=== PATIENT | female | born 1945 | race Caucasian/White ===

== ENCOUNTER → 2023-10-16 07:50 | Outpatient (REF) | payer MEDICARE, OTHER, SELFPAY | LOC: DHCBC/DCA 07:50 | PROVIDERS: ATTENDING PHYSICIAN Nuclear Medicine Nuclear Cardiology; FAMILY PHYSICIAN Family Medicine | DX: I10 Essential (primary) hypertension (principal); R00.0 Tachycardia, unspecified; Z82.49 Family history of ischemic heart disease and other diseases of the circulatory system; E11.9 Type 2 diabetes mellitus without complications; I25.10 Atherosclerotic heart disease of native coronary artery without angina pectoris | CPT/HCPCS: 78452; 93017; A9500 ==

== ENCOUNTER → 2023-11-04 09:12 | Outpatient (REF) | payer MEDICARE, OTHER, SELFPAY | LOC: HWRCS 09:12 | PROVIDERS: ATTENDING PHYSICIAN Nuclear Medicine Nuclear Cardiology; FAMILY PHYSICIAN Family Medicine | DX: I10 Essential (primary) hypertension (principal); R00.0 Tachycardia, unspecified; Z82.49 Family history of ischemic heart disease and other diseases of the circulatory system; E11.9 Type 2 diabetes mellitus without complications; I25.10 Atherosclerotic heart disease of native coronary artery without angina pectoris | CPT/HCPCS: 93306 ==

== ENCOUNTER 2024-11-28 12:05 | Emergency (ER) | payer MEDICARE, OTHER, SELFPAY ==
[2024-11-28 12:11] VITALS: BP 193/98
[2024-11-28 12:31] LABS: Hematocrit 33.8 % (37.0-47.0); Hemoglobin 11.3 g/dL (12.0-16.0); Mean Corp Hgb Conc. 33.4 g/dL (33.0-37.0); Mean Corpuscular Volume 83.5 fL (81.0-99.0); Nucleated Red Blood Cells % 0 %; Platelet Count 474 10^3/uL (130-400); Red Cell Dist. Width 13.4 % (11.5-14.5)
[2024-11-28 12:57] LABS: Urine Character Cloudy (Clear)
[2024-11-28 13:31] LABS: Urine Squamous Cell >30 /LPF (Few); Urine White Cell 50-60 /HPF (0-5)
[2024-11-28 14:08] VITALS: BMI 30.6
[2024-11-28 14:20] VITALS: BP 167/72
--- NOTE | 2024-11-28 14:23 | EDRN ---
Dr. García in room w/ pt at this time.
[2024-11-28 14:47] LABS: ALT (SGPT) 16 U/L (0-35); AST (SGOT) 20 U/L (14-36); Albumin 4.7 g/dl (3.5-5.0); Alkaline Phosphatase 53 U/L (38-126); Blood Urea Nitrogen 18 mg/dl (7-17); Calcium 10.6 mg/dl (8.4-10.2); Carbon Dioxide 23 mmol/L (22-30); Chloride 100 mmol/L (98-107); Estimated Creatinine Clearance 62 ml/min; Glucose 104 mg/dl (70-99); Potassium 4.1 mmol/L (3.5-5.1); Sodium 131 mmol/L (135-145); Total Protein 7.2 g/dl (6.3-8.2); eGFR > 60.00
[2024-11-28 15:00] VITALS: BP 159/74
--- NOTE | 2024-11-28 15:01 | EDRN ---
Pt asking to be straight cathed as she self caths at home.
--- NOTE | 2024-11-28 15:14 | EDRN ---
Pt self catheterizes at home. Pt states she has not voided. Bladder scanned for 2 mL.
--- NOTE | 2024-11-28 15:16 | EDRN ---
Pt's HR increased to 140-150, repeat EKG done and pt in A Flutter.
[2024-11-28] MEDS: CARDIZEM 10 MG IV (15:25)
[2024-11-28 15:26] VITALS: BP 176/75
--- NOTE | 2024-11-28 15:44 | ED.GENMED ---
History of Present Illness
General
Chief Complaint: Abnormal Lab Value
Source: patient
Exam Limitations: none
Time Seen by Provider: 11/28/24 14:02
History of Present Illness
History of Present Illness:
78-year-old female presents mostly with jitteriness. She was concerned about a low sodium. She felt dizzy overnight. Her blood sugar was low but her monitor was questionably accurate. She took 3 large glasses of orange juice. This morning she
felt lightheaded and took 3 large power drinks. Currently she feels fine. She says she has had intermittent episodes of heart racing in the past that she felt was due to her nerves. Currently denying chest pain shortness of breath heart racing
syncope or any other acute complaints
Past History
Past History
ED Past Medical History: HTN, Hypercholesterolemia and NIDDM
ED Past Surgical History: Other (Total thyroidectomy)
Social History
Tobacco: Non-smoker
Alcohol: None
Drug: None
Personal:
Living: with family
Family History
Family History: Other (Uncontributory)
Review of Systems
Review of Systems
All Other Systems: Not applicable
Constitutional: Denies fever
Cardiac: Denies chest pain or syncope
Phy Exam
Physical Exam
Physical Exam:
GENERAL: Alert and oriented in no apparent distress
EYE: Orbits normal.
NECK: Supple, no thyroid palpable
ENT: Pharynx without erythema
CARDIAC: Mildly tachycardic and regular no murmur
LUNGS: Clear breath sounds,normal
ABDOMEN: Soft, without focal tenderness or distention
NEUROLOGICAL: Alert and oriented , grossly non-focal
SKIN: Warm and dry, no rash or lesion, no discoloration, skin intact.
MUSCULOSKELETAL: No edema,no deformity.Good color
PSYCH: Normal and appropriate interaction.
Course
Orders/Labs/Results
Orders:
Orders
11/28/24 12:08
Electrocardiogram (*1) Urgent
Reason for Study: Abdominal Pain
EKG- Treatment ONCE
11/28/24 12:22
Complete Blood Count/With Diff Urgent
Urinalysis Reflex To Culture Urgent
Date Specimen was Collected: 11/28/24
Time Specimen was Collected: 12:08
Urine Microscopic Reflex Cult Urgent
Urine Osmolality Random [Osmolality, Random Urine] Urgent
Date Specimen was Collected: 11/28/24
Time Specimen was Collected: 12:08
Urine Culture Urgent
VIANNEY Source: U
Specimen Description:
Date Specimen was Collected: 11/28/24
Time Specimen was Collected: 12:08
11/28/24 14:16
Comprehensive Metabolic Panel Urgent
TSH Reflex To Free T4 Urgent
11/28/24 15:03
EKG [Electrocardiogram (*1)] Urgent
Reason for Study: Other
Other Reason for Exam: svt
EKG- Treatment ONCE
Aspirin Chewable [Low Strength Aspirin] 81 mg TUBE NOW STA
11/28/24 15:13
Add On- LAB Urgent
Tests Added?: tsh reflex t4
11/28/24 15:20
Metoprolol [Lopressor] 5 mg IV NOW STA
11/28/24 15:22
Diltiazem HCl [Cardizem] 10 mg IV NOW STA
11/28/24 16:10
Diltiazem Extended Release [Cardizem Cd] 120 mg PO NOW STA
11/28/24 17:05
Apixaban [Eliquis] 5 mg PO NOW STA
Abnormal Lab Results
11/28/24 11/28/24
12:22 14:16
RBC 4.05 L 10^6/uL
(4.20-5.40)
Hgb 11.3 L g/dL
(12.0-16.0)
Hct 33.8 L %
(37.0-47.0)
Plt Count 474 H 10^3/uL
(130-400)
Absolute Neuts (auto) 8.0 H 10^3/uL
(1.4-6.5)
Absolute Monos (auto) 0.7 H 10^3/uL
(0.1-0.6)
Lymphocytes % 17.0 L %
(20.5-51.1)
Sodium 131 L mmol/L
(135-145)
BUN 18 H mg/dl
(7-17)
Glucose 104 H mg/dl
(70-99)
Calcium 10.6 H mg/dl
(8.4-10.2)
Ur Occult Blood Reflex 1+ A
(Negative)
Urine Nitrite (Reflex) Positive A
(Negative)
Leukocyte Esterase Rfl 3+ A
(Negative)
Urine RBC 3-6 A /HPF
(0-2)
Urine WBC (Reflex) 50-60 A /HPF
(0-5)
Urine Bacteria (Reflex) Many A
(Negative)
Urine Albumin (Reflex) 2+ A
(Neg - Trace)
11/28/24 12:22
11/28/24 14:16
Vital Signs
Initial and Last Documented VS:
Initial Vital Signs
Temp Pulse Resp BP Pulse Ox
98.4 F 116 16 193/98 98
11/28/24 12:11 11/28/24 12:11 11/28/24 12:11 11/28/24 12:11 11/28/24 12:11
Last Documented Vital Signs
Temp Pulse Resp BP Pulse Ox
98.4 F 97 17 164/63 98
11/28/24 12:11 11/28/24 17:30 11/28/24 17:30 11/28/24 17:00 11/28/24 17:15
MDM/Problems Addressed
Differential Diagnosis Includes:
Patient medically stable and nontoxic. Sodium reasonable at 131. No acute findings on exam except patient did go into a tachycardic regular regular at 152 that appeared to be atrial flutter. She does not necessarily feel this. She reversed in
and out of this throughout her ER stay. Discussed with cardiology. Will add rate control with Cardizem. Add Eliquis. No contraindication anticoagulation. Urine is positive but she self catheterizes has no fever chills or other infectious
complaints.
*Pulse Oximetry
SaO2: 98
Oxygen Mode of Delivery: Room air
Patient hypoxic: no
*EKG
Interpreted by ED Provider?: Yes
Interpretation: abnormal
Comparison EKG: changes noted
Heart Rate: 114
Rate: tachycardiac
Rhythm: sinus
[place]: normal axis
Interval: normal interval
QRS Pattern: normal QRS
Ischemia: non-specific ST changes
*Laundry Agent Interpretation
Rate: tachycardiac
Interpretation: abnormal
Heart Rate: 152
Rhythm: atrial flutter
*Critical Care Note
Total Time (30-74mins, 75-104mins- exclusive of procedures): Not Applicable
Update Note
Update Note:
Patient will hold her statin until she follows up this week because of interaction with Cardizem
ED Attending Note
-
Portions of this chart may have been created with voice recognition software.� Occasional wrong word or��sound alike� substitutions may have occurred due to the inherent limitations of voice recognition software.
Discharge Plan
Departure
Patient Disposition: Home (Routine Discharge)
Date of Disposition: 11/28/24
Time of Disposition: 17:07
Patient with high blood pressure during this ER visit?: Yes
Discharge Problem:
Paroxysmal atrial flutter, Mild hyponatremia
Instructions: Hyponatremia, Managing increased bleeding risk, Atrial flutter (DC), BLOOD PRESSURE
Prescriptions:
New
Eliquis 5 mg tablet
5 mg PO BID Qty: 60 0RF
diltiazem HCl [Cardizem CD] 120 mg capsule,extended release 24hr
120 mg PO DAILY Qty: 30 0RF
No Action
simvastatin 40 MG tablet
40 mg PO DAILY
fenofibrate nanocrystallized 145 MG tablet
145 mg PO DAILY
aspirin [Surendra Low Dose Aspirin] 81 MG tablet,delayed release (DR/EC)
81 mg PO DAILY
metformin 1,000 MG tablet
1,000 mg PO BID
glimepiride 4 MG tablet
4 mg PO BID
levothyroxine [Synthroid] 100 MCG tablet
100 mcg PO DAILY Qty: 30 1RF
losartan 50 MG tablet
50 mg PO DAILY Qty: 30 0RF
acetaminophen-codeine 300-30 mg Tablet
1 tab PO Q4HPRN PRN (Reason: pain) Qty: 5 0RF
Referrals:
Sonny Whittaker DO [Active, Cardiology] - Follow up in 5-7 days
Jermaine Martell MD [Family Provider, Family Practice]
Activity Restrictions/Additional Instructions:
Your prescriptions were sent to your pharmacy. Start them tomorrow
Follow-up this week with your air tester and primary physician
Get a repeat sodium level done Saturday
Interventions
Interventions:
*Risk Screen - Suicide Last Done: 11/28/24 14:08
*General Assessment Last Done: 11/28/24 14:08
*Neglect/Abuse Screening Last Done: 11/28/24 14:08
*ED- Fall Risk Assessment Last Done: 11/28/24 14:08
*ED COVID-19 Vaccine History Last Done: 11/28/24 14:08
*Nursing Disposition Last Done: 11/28/24 17:40
Discharge Date and Time
Discharge Date/Time: 11/28/24 17:40
Print Language: CUBAN
[2024-11-28 16:09] VITALS: BP 162/66
--- NOTE | 2024-11-28 16:13 | EDRN ---
Sterling VACA in room w/pt at this time.
[2024-11-28 17:00] VITALS: BP 164/63
[2024-11-28] MEDS: CARDIZEM CD 120 MG PO (17:00)
[2024-11-28] MEDS: ELIQUIS 5 MG PO (17:25)
== END 2024-11-28 17:40 | disposition home or self-care (01) ==
LOC: EMR 12:05
PROVIDERS: Student in an Organized Health Care Education/Training Program; EMERGENCY PHYSICIAN Emergency Medicine; FAMILY PHYSICIAN Family Medicine
DX: I48.92 Unspecified atrial flutter (principal); E87.1 Hypo-osmolality and hyponatremia; I10 Essential (primary) hypertension; E78.00 Pure hypercholesterolemia, unspecified; E11.9 Type 2 diabetes mellitus without complications; I47.10 Supraventricular tachycardia, unspecified; Z79.01 Long term (current) use of anticoagulants
CPT/HCPCS: 99283; 96374; 80053; 81003; 81015; 83935; 84443; 85025; 87071; 87086; 87186; 93005

== ENCOUNTER → 2024-11-30 10:56 | Outpatient (REF) | payer MEDICARE, OTHER, SELFPAY ==
[2024-11-30 12:12] LABS: Blood Urea Nitrogen 17 mg/dl (7-17); Calcium 11.0 mg/dl (8.4-10.2); Carbon Dioxide 27 mmol/L (22-30); Chloride 100 mmol/L (98-107); Glucose 137 mg/dl (70-99); Potassium 4.7 mmol/L (3.5-5.1); Sodium 134 mmol/L (135-145); eGFR > 60.00
== END ==
LOC: REG 10:56
PROVIDERS: ATTENDING PHYSICIAN Nuclear Medicine Nuclear Cardiology; FAMILY PHYSICIAN Family Medicine
DX: E11.65 Type 2 diabetes mellitus with hyperglycemia (principal); E78.2 Mixed hyperlipidemia
CPT/HCPCS: 36415; 80048

== ENCOUNTER 2025-01-09 16:07 | Emergency (ER) | payer MEDICARE, OTHER, SELFPAY ==
[2025-01-09 16:14] VITALS: BP 180/103
[2025-01-09 16:43] LABS: Hematocrit 36.9 % (37.0-47.0); Hemoglobin 12.4 g/dL (12.0-16.0); Mean Corp Hgb Conc. 33.6 g/dL (33.0-37.0); Mean Corpuscular Volume 85.4 fL (81.0-99.0); Nucleated Red Blood Cells % 0 %; Platelet Count 537 10^3/uL (130-400); Red Cell Dist. Width 13.6 % (11.5-14.5)
[2025-01-09 16:52] LABS: ALT (SGPT) 18 U/L (0-35); AST (SGOT) 26 U/L (14-36); Albumin 5.2 g/dl (3.5-5.0); Alkaline Phosphatase 52 U/L (38-126); Blood Urea Nitrogen 19 mg/dl (7-17); Calcium 10.8 mg/dl (8.4-10.2); Carbon Dioxide 23 mmol/L (22-30); Chloride 99 mmol/L (98-107); Glucose 126 mg/dl (70-99); Potassium 4.2 mmol/L (3.5-5.1); Sodium 131 mmol/L (135-145); Total Protein 8.0 g/dl (6.3-8.2); eGFR > 60.00
[2025-01-09 17:02] LABS: Troponin I 0.014 ng/ml
[2025-01-09 20:03] VITALS: BP 178/81
--- NOTE | 2025-01-09 20:17 | ED.GENMED ---
History of Present Illness
General
Chief Complaint: Cardiac Symptoms
Source: patient
Exam Limitations: none
Time Seen by Provider: 01/09/25 20:03
Nursing documentation reviewed up to this point in time: agreed with
History of Present Illness
History of Present Illness:
79-year-old female presents to the ER for evaluation of palpitations. Patient has a history of a flutter and is scheduled for a cardiac ablation 02/03/25.
Around 2 PM patient noticed her heart was racing and presented to the ER. Upon presentation patient's heart rate was sinus tach however she was not in A-fib flutter. Upon my exam however patient is now back in a flutter. She does feel mild
palpitations no associated shortness of breath. She is on Eliquis 5 mg twice daily and has not missed her dose. In addition she is on Cardizem 120 mg and took it this morning.
She denies any chest pain .
Past History
Past History
ED Past Medical History: HTN, Hypercholesterolemia and NIDDM
ED Past Surgical History: Other (Total thyroidectomy)
Social History
Tobacco: Non-smoker
Alcohol: None
Drug: None
Personal:
Living: with family
Family History
Family History: Other (Uncontributory)
Phy Exam
General Physical Exam
General Presentation: no apparent distress
General age: appears stated age
General Skin: warm and dry
General Habitus: elderly
General Mental: alert
General Hydration: appears well hydrated
Cardiovascular Exam
Cardiovascular Exam: no murmur, normal peripheral pulses and tachycardia
Pulmonary Exam
Pulmonary Exam: lungs clear and no respiratory distress
Neurological Exam
Neurological Exam: alert and oriented x3
Musculoskeletal Exam
Musculoskeletal Exam: full ROM
Skin Exam
Skin Exam: normal color and warm/dry
Psychiatric Exam
Psychiatric Exam: normal mood/affect
Course
Orders/Labs/Results
Orders:
Orders
01/09/25
Electrocardiogram (*1) Stat
Reason for Study: Chest Pain
Comment: DONE NO ORDER ENTERED
01/09/25 16:08
Electrocardiogram (*1) Urgent
Reason for Study: Tachycardia
EKG- Treatment ONCE
01/09/25 16:23
Complete Blood Count/With Diff Urgent
Comprehensive Metabolic Panel Urgent
Free T4 Urgent
TSH Reflex To Free T4 Urgent
Comment: ADD ON
Troponin I Urgent
01/09/25 20:14
Electrocardiogram (*1) Urgent
Reason for Study: Tachycardia
EKG- Treatment ONCE
01/09/25 20:25
0.9% Sodium Chloride 1000 ml [Nss] 1,000 ml IV BOLUS
01/09/25 22:30
Add On- LAB Urgent
Tests Added?: tsh with reflexive t4
Abnormal Lab Results
01/09/25
16:23
WBC 11.4 H 10^3/uL
(4.8-10.8)
Hct 36.9 L %
(37.0-47.0)
Plt Count 537 H 10^3/uL
(130-400)
Absolute Neuts (auto) 8.6 H 10^3/uL
(1.4-6.5)
Absolute Monos (auto) 0.8 H 10^3/uL
(0.1-0.6)
Neutrophils % 75.4 H %
(42.2-75.2)
Lymphocytes % 16.2 L %
(20.5-51.1)
Sodium 131 L mmol/L
(135-145)
BUN 19 H mg/dl
(7-17)
Glucose 126 H mg/dl
(70-99)
Calcium 10.8 H mg/dl
(8.4-10.2)
Albumin 5.2 H g/dl
(3.5-5.0)
TSH (Reflex) 0.36 L uIU/ml
(0.47-4.68)
Free T4 2.61 H ng/dl
(0.78-2.19)
01/09/25 16:23
01/09/25 16:23
Vital Signs
Initial and Last Documented VS:
Initial Vital Signs
Temp Pulse Resp BP Pulse Ox
98.5 F 107 18 180/103 98
01/09/25 16:14 01/09/25 16:14 01/09/25 16:14 01/09/25 16:14 01/09/25 16:14
Last Documented Vital Signs
Temp Pulse Resp BP Pulse Ox
98.5 F 72 17 132/72 98
01/09/25 16:14 01/09/25 22:30 01/09/25 22:30 01/09/25 22:00 01/09/25 22:30
Information Coordinator consulted with Physician
Information Coordinator consulted with physician?: Yes
Name of Physician Consulted: Sanya
MDM/Problems Addressed
Differential Diagnosis Includes:
Not limited to A-fib a flutter
MDM/Problems Addressed:
Patient is a 79-year-old female with history of A-fib a flutter scheduled for an ablation February 03. She is followed by Dr. Whittaker. She complained of palpitations at home she presented to the ER normal sinus rhythm she did have a brief episode of
a flutter here in the ER however spontaneously converted on her own. She has been in normal sinus rhythm since and is well-appearing in no acute distress asymptomatic. She denies any fever chills her lungs are clear she is not short of breath.
She is on Eliquis and Cardizem has not skipped any doses. No complaints of chest pain. Sodium very minimally low at 131.
Case reviewed with ED physician will DC patient with outpatient follow-up cardiology.
I did call pt at home and notify that her thyroid levels are a little elevated. 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
Chronic conditions affecting care:
A-fib a flutter
*Pulse Oximetry
SaO2: 98
Oxygen Mode of Delivery: Room air
Patient hypoxic: no
*EKG
Interpreted by ED Provider?: Yes
Heart Rate: 107
Rate: tachycardiac
Rhythm: sinus
Ischemia: non-specific ST changes
*Critical Care Note
Total Time (30-74mins, 75-104mins- exclusive of procedures): Not Applicable
ED Attending Note
-
Portions of this chart may have been created with voice recognition software.� Occasional wrong word or��sound alike� substitutions may have occurred due to the inherent limitations of voice recognition software.
Discharge Plan
Departure
Patient Disposition: Home (Routine Discharge)
Date of Disposition: 01/09/25
Time of Disposition: 22:28
Patient with high blood pressure during this ER visit?: Yes
Condition: Fair
Covid-19: Not Applicable
Discharge Problem:
Atrial flutter
Instructions: Atrial fibrillation and atrial flutter - ED (DC), BLOOD PRESSURE
Prescriptions:
No Action
simvastatin 40 MG tablet
40 mg PO DAILY
fenofibrate nanocrystallized 145 MG tablet
145 mg PO DAILY
aspirin [Surendra Low Dose Aspirin] 81 MG tablet,delayed release (DR/EC)
81 mg PO DAILY
metformin 1,000 MG tablet
1,000 mg PO BID
glimepiride 4 MG tablet
4 mg PO BID
levothyroxine [Synthroid] 100 MCG tablet
100 mcg PO DAILY Qty: 30 1RF
losartan 50 MG tablet
50 mg PO DAILY Qty: 30 0RF
acetaminophen-codeine 300-30 mg Tablet
1 tab PO Q4HPRN PRN (Reason: pain) Qty: 5 0RF
Eliquis 5 mg tablet
5 mg PO BID Qty: 60 0RF
diltiazem HCl [Cardizem CD] 120 mg capsule,extended release 24hr
120 mg PO DAILY Qty: 30 0RF
Referrals:
Sonny Whittaker DO [Active, Cardiology]
Jermaine Martell MD [Family Provider, [facility]]
Activity Restrictions/Additional Instructions:
As discussed please call your cardiology office Saturday morning for an appointment in the next several days return if any worsening of symptoms. Continue to take your present medications. stay well-hydrated avoid caffeine chocolate excetra. Return
if any worsening of symptoms
Interventions
Interventions:
*Risk Screen - Suicide Last Done: 01/09/25 16:14
*General Assessment Last Done: 01/09/25 16:14
*Neglect/Abuse Screening Last Done: 01/09/25 16:14
*ED- Fall Risk Assessment Last Done: 01/09/25 16:14
*ED COVID-19 Vaccine History Last Done: 01/09/25 16:14
*ED Influenza Vaccine History Last Done: 01/09/25 16:14
*Nursing Disposition Last Done: 01/09/25 23:03
ED- Pulmonary Assessment Last Done: 01/09/25 20:02
ED- Cardiac Assessment Last Done: 01/09/25 20:02
Discharge Date and Time
Discharge Date/Time: 01/09/25 23:03
Print Language: CITIZEN OF [place]
[2025-01-09] MEDS: NSS 1000 IV (20:29)
[2025-01-09 21:00] VITALS: BP 157/70
[2025-01-09 22:00] VITALS: BP 132/72
== END 2025-01-09 23:03 | disposition home or self-care (01) ==
LOC: EMR 16:07
PROVIDERS: Emergency Medicine; EMERGENCY PHYSICIAN Emergency Medicine; FAMILY PHYSICIAN Family Medicine
DX: I48.92 Unspecified atrial flutter (principal); I48.91 Unspecified atrial fibrillation; E11.9 Type 2 diabetes mellitus without complications; E78.00 Pure hypercholesterolemia, unspecified; I10 Essential (primary) hypertension; Z79.01 Long term (current) use of anticoagulants
CPT/HCPCS: 99284; 96360; 80053; 84439; 84443; 84484; 85025; 93005

== ENCOUNTER → 2025-01-25 10:21 | Outpatient (REF) | payer MEDICARE, OTHER, SELFPAY | LOC: HWRCS 10:21 | PROVIDERS: ATTENDING PHYSICIAN Nuclear Medicine Nuclear Cardiology; FAMILY PHYSICIAN Family Medicine | DX: I48.92 Unspecified atrial flutter (principal) | CPT/HCPCS: 93306 ==

== ENCOUNTER → 2025-01-26 10:12 | Outpatient (REF) | payer MEDICARE, OTHER, SELFPAY ==
[2025-01-26 11:09] LABS: Hematocrit 36.8 % (37.0-47.0); Hemoglobin 12.1 g/dL (12.0-16.0); Mean Corp Hgb Conc. 32.9 g/dL (33.0-37.0); Mean Corpuscular Volume 88.2 fL (81.0-99.0); Nucleated Red Blood Cells % 0 %; Platelet Count 480 10^3/uL (130-400); Red Cell Dist. Width 14.3 % (11.5-14.5)
[2025-01-26 11:14] LABS: INR 1.28; PT 16.3 Sec (11.4-14.6)
[2025-01-26 11:41] LABS: ALT (SGPT) 16 U/L (0-35); AST (SGOT) 19 U/L (14-36); Albumin 4.9 g/dl (3.5-5.0); Alkaline Phosphatase 48 U/L (38-126); Blood Urea Nitrogen 18 mg/dl (7-17); Calcium 10.5 mg/dl (8.4-10.2); Carbon Dioxide 28 mmol/L (22-30); Chloride 103 mmol/L (98-107); Glucose 95 mg/dl (70-99); Magnesium 2.0 mg/dl (1.6-2.3); Potassium 4.3 mmol/L (3.5-5.1); Sodium 137 mmol/L (135-145); Total Protein 6.7 g/dl (6.3-8.2); eGFR > 60.00
== END ==
LOC: SDSPAT 10:12
PROVIDERS: ATTENDING PHYSICIAN Internal Medicine Cardiovascular Disease; FAMILY PHYSICIAN Family Medicine; OTHER PHYSICIAN Nuclear Medicine Nuclear Cardiology
DX: I48.92 Unspecified atrial flutter (principal)
CPT/HCPCS: 36415; 80053; 83735; 85025; 85610; 86850; 86900; 86901; 93005

== ENCOUNTER 2025-02-03 10:28 | Day surgery (SDC) | payer MEDICARE, OTHER, SELFPAY ==
[2025-01-26 10:20] VITALS: BMI 29.0
[2025-02-03] VITALS (9 sets, daily range): BP systolic 131–154; BP diastolic 63–98
--- NOTE | 2025-02-03 09:15 | ITS.CL.ABL ---
[place] - Ablation
Ablation
Procedure Report:
ELECTROPHYSIOLOGIC STUDY AND POSSIBLE ABLATION
Date of Procedure: 02/03/25
Primary Care Provider: Dr Jermaine Martell
Primary lawyer criminal: Dr Sonny Whittaker
INDICATION:
1. Atrial tachyarrhythmia, symptomatic
HISTORY:
Symptomatic paroxysmal supraventricular tachycardia felt to be right atrial flutter.
She was seen at the emergency department [facility] November 28, 2024 with feeling jittery.
She was found to have paroxysmal atrial flutter with 2-1 conduction and ventricular rate of 152 bpm. Is noted that she was paroxysmal spontaneously converting to sinus rhythm and then back to a flutter excetra.� Eliquis was initiated as well as oral
Cardizem.� She was then discharged to home.
She follows at [facility] for thyroid cancer status post total thyroidectomy and radiation. TSH on November 28, 2024 0.70.
She underwent an exercise MIBI October 2023 showing normal myocardial perfusion at 7 METS of activity.� There was brief SVT in recovery.� Echo October 2023 showed EF 60 to 65% with mild LVH.
PROCEDURE:
Ultrasound Guidance performed by al was utilized for femoral venous Vascular Access b/l. Vascular US demonstrated the typical vascular anatomy.
A decapolar mapping catheter was placed into the CS for LA mapping/recording.
The Sphere 9 multipolar mapping/ablation Sphere-9 catheter was positioned through the Agilis sheath for high density mapping.
Geometry and voltage mapping was performed using the [employer] mapping system for three-dimensional electroanatomical mapping.
Programmed electrical stimulation which included burst atrial pacing as well as delivery of atrial decremental extrastimuli failed to induce any sustained arrhythmia.
Based on the clinical scenario and her presenting SVT ECG, she is felt to have typical counterclockwise right atrial flutter. Based on this empiric CTI ablation was then undertaken.
After determination of a target arrhythmia, the Sphere 9 mapping/ablation catheter was advanced to the inferior aspect of the tricuspid annulus (isthmus of atrial tissue between the annulus and inferior vena caval orifice). RF was used closer to
the TVA and PFA was used at the mid isthmus down to the inferior vena cava to try to interrupt a critical portion of the flutter circuit. Ablation applications were given from the 5 to 7 o'clock positions along the tricuspid annulus during sinus
rhythm as well as during pacing from the proximal coronary sinus. The Sphere 9 catheter was initially placed on the ventricular aspect of the annulus, where energy delivery was begun. A series of discrete applications were made along a line
between the annulus and inferior vena caval orifice. At the conclusion of energy delivery, pacing from both the lateral as well as medial aspect of the tricuspid annulus revealed a discontinuity in the wavefront of atrial activation along the
tricuspid annulus-IVC isthmus; sites medial to 6 o'clock were activated from the medial aspect, and those lateral to 6 o'clock were activated from the lateral aspect. This suggests that the flutter circuit utilizing this isthmus as a critical
portion of its propagation had been interrupted. Programmed electrical stimulation was then repeated and still no sustained arrhythmias could be induced.
COMPLICATIONS: None
SUMMARY:
- Mapping and ablation of supraventricular tachycardia
- EP study with coronary sinus catheter
- 3-dimensional electroanatomical mapping ([employer])
- Vascular ultrasound
RECOMMENDATIONS:
1: Continue oral anticoagulation for 2 months post ablation, then stop (AF has not been observed)
Copy to:
Primary Care Provider: Dr Jermaine Martell
Primary lawyer criminal: Dr Sonny Whittaker
[2025-02-03 11:06] LABS: Glucose - Point of Care 128 mg/dl (70-99)
[2025-02-03 12:32] LABS: ACT-LR - POC 276 Seconds (116-155)
[2025-02-03 12:39] LABS: Glucose - Point of Care 125 mg/dl (70-99)
[2025-02-03 12:55] LABS: ACT-LR - POC 313 Seconds (116-155)
--- NOTE | 2025-02-03 15:47 | W.PN.UPDATE ---
Update Note
Progress Note Update
Pt seen post AT/AFlutter ablation. Right groin site with vascade closure, no ht/bleeding. OOB ambulating. Post EKG NSR 90 w/anterolateral NSSTT abn, as before with no acute changes. Resume eliquis tonight. Will decrease diltiazem to 120mg daily.
Followup with Dr. Whittaker as scheduled. Home today if groin site/tele remain stable.
== END 2025-02-03 16:30 | disposition home or self-care (01) ==
LOC: CATH 10:28
PROVIDERS: ATTENDING PHYSICIAN Internal Medicine Cardiovascular Disease; FAMILY PHYSICIAN Family Medicine; OTHER PHYSICIAN Nuclear Medicine Nuclear Cardiology
DX: I48.92 Unspecified atrial flutter (principal); E11.9 Type 2 diabetes mellitus without complications; Z79.84 Long term (current) use of oral hypoglycemic drugs; I11.9 Hypertensive heart disease without heart failure; E78.5 Hyperlipidemia, unspecified; Z85.850 Personal history of malignant neoplasm of thyroid; Z79.899 Other long term (current) drug therapy; Z79.890 Hormone replacement therapy; Z79.01 Long term (current) use of anticoagulants; E89.0 Postprocedural hypothyroidism; I47.19 Other supraventricular tachycardia; I49.3 Ventricular premature depolarization; Z82.49 Family history of ischemic heart disease and other diseases of the circulatory system
CPT/HCPCS: C1769; C1766; C1730; C1760; C1892; 82962; 85347; 93005; 93653; C1894

== ENCOUNTER 2025-02-17 08:00 | Emergency (ER) | payer MEDICARE, OTHER, SELFPAY ==
[2025-02-17 08:05] VITALS: BP 189/92
[2025-02-17 09:11] LABS: Hematocrit 39.1 % (37.0-47.0); Hemoglobin 12.8 g/dL (12.0-16.0); Mean Corp Hgb Conc. 32.7 g/dL (33.0-37.0); Mean Corpuscular Volume 86.5 fL (81.0-99.0); Nucleated Red Blood Cells % 0 %; Platelet Count 516 10^3/uL (130-400); Red Cell Dist. Width 14.1 % (11.5-14.5)
[2025-02-17 09:24] LABS: INR 1.36; PT 16.5 Sec (11.4-14.6)
[2025-02-17 09:41] LABS: Troponin I < 0.012 ng/ml
[2025-02-17 09:43] LABS: ALT (SGPT) 15 U/L (0-35); AST (SGOT) 20 U/L (14-36); Albumin 4.9 g/dl (3.5-5.0); Alkaline Phosphatase 66 U/L (38-126); Blood Urea Nitrogen 17 mg/dl (7-17); Calcium 10.4 mg/dl (8.4-10.2); Carbon Dioxide 27 mmol/L (22-30); Chloride 101 mmol/L (98-107); Glucose 123 mg/dl (70-99); Potassium 4.3 mmol/L (3.5-5.1); Sodium 136 mmol/L (135-145); Total Protein 7.4 g/dl (6.3-8.2); eGFR > 60.00
[2025-02-17 10:17] VITALS: BP 183/77
[2025-02-17 10:23] VITALS: BMI 29.5
[2025-02-17 10:24] VITALS: BP 183/77
--- NOTE | 2025-02-17 10:43 | ED.GENMED ---
History of Present Illness
General
Chief Complaint: Cardiac Symptoms
Source: patient
Exam Limitations: none
Time Seen by Provider: 02/17/25 10:07
Nursing documentation reviewed up to this point in time: agreed with
History of Present Illness
History of Present Illness:
see MDM
Past History
Past History
ED Past Medical History: HTN, Hypercholesterolemia and NIDDM
ED Past Surgical History: Cardiac and Other (Total thyroidectomy)
Social History
Tobacco: Non-smoker
Alcohol: None
Drug: None
Personal:
Living: with family
Family History
Family History: Other (Uncontributory)
Review of Systems
Review of Systems
Allergies reviewed?: Yes
All Other Systems: Not applicable
Phy Exam
Physical Exam
Physical Exam:
GENERAL: Alert , in no anxious but in no distress
EYE: pupils equal and reactive
NECK: Supple
ENT: o/p clr, mmm.
CARDIAC: Mildly tacky, low 100s
LUNGS: Clear breath sounds bilaterally, no acute respiratory distress, no wheezes/rales/rhonchi
ABDOMEN: Soft, without focal tenderness, no r/g, no cvat, normal bowel sounds
NEUROLOGICAL: Alert and oriented, no focal neuro deficits
SKIN: Warm and dry, skin intact.
MUSCULOSKELETAL: No edema, well perfused. neg virgil's sign
PSYCH: Normal and appropriate interaction.
Course
Orders/Labs/Results
Orders:
Orders
02/17/25 08:08
Electrocardiogram (*1) Urgent
Reason for Study: Atrial Fibrillation
EKG- Treatment ONCE
02/17/25 08:56
Complete Blood Count/With Diff Urgent
Comprehensive Metabolic Panel Urgent
PT/INR [Prothrombin Time] Urgent
Troponin I Urgent
02/17/25 10:27
Free T4 Urgent
Comment: ADD
TSH Urgent
02/17/25 10:39
Add On- LAB Urgent
Tests Added?: tsh reflex t4
0.9% Sodium Chloride 500 ml [Nss] 500 ml IV BOLUS
Abnormal Lab Results
02/17/25 02/17/25
08:56 10:27
WBC 11.9 H 10^3/uL
(4.8-10.8)
MCHC 32.7 L g/dL
(33.0-37.0)
Plt Count 516 H 10^3/uL
(130-400)
Abs Immat Gran (auto) 0.1 H 10^3/uL
(0-0.05)
Absolute Neuts (auto) 9.9 H 10^3/uL
(1.4-6.5)
Neutrophils % 82.7 H %
(42.2-75.2)
Lymphocytes % 10.7 L %
(20.5-51.1)
PT 16.5 H Sec
(11.4-14.6)
Glucose 123 H mg/dl
(70-99)
Calcium 10.4 H mg/dl
(8.4-10.2)
TSH 0.13 L uIU/ml
(0.47-4.68)
Free T4 2.41 H ng/dl
(0.78-2.19)
02/17/25 08:56
02/17/25 08:56
Vital Signs
Initial and Last Documented VS:
Initial Vital Signs
Temp Pulse Resp BP Pulse Ox
36.6 C 120 16 189/92 98
02/17/25 08:05 02/17/25 08:05 02/17/25 08:05 02/17/25 08:05 02/17/25 08:05
Last Documented Vital Signs
Temp Pulse Resp BP Pulse Ox
36.6 C 90 16 153/68 97
02/17/25 08:05 02/17/25 12:30 02/17/25 12:30 02/17/25 12:00 02/17/25 12:30
MDM/Problems Addressed
Differential Diagnosis Includes:
SEEmdm
MDM/Problems Addressed:
Note:
CHIEF COMPLAINT(S)
Racing heart.
HISTORY OF PRESENT ILLNESS
The patient 79 y/o f presents with a racing heart, having experienced this earlier in the morning 5am. She noted a difficulty in falling back asleep, attributing it to the racing heart. She mentioned checking her pulse, which was approximately 120
beats per minute. The patient has a history of atrial fibrillation and underwent an ablation procedure 02/03. The patient recently had her thyroid medication adjusted from 150 mcg to 135 mcg.
The episode began early in the morning, and the patient describes previous similar experiences. During the episode, her heart rate was 102 beats per minute, better than the initial 120 beats per minute she observed. She did not experience chest
pain, shortness of breath, fever, or chills. Blood work was completed to assess for electrolyte imbalances possibly related to her heart rhythms. No previous history of a heart attack was suggested. The patient mentioned that the racing episodes,
usually returning to sinus rhythm on their own, cause anxiety. She also reported a morning blood pressure reading of 200 over 110, although unsure of device accuracy. Patient says her losartan was reduced while she was in the hospital and she was
added diltiazem for the A-fib
She is compliant with her Eliquis
SOCIAL [employer]ERMINANTS AFFECTING HEALTH
The patient expresses stress related to her husbands dementia, compounded by the recent misplacement of his expensive hearing aids. She mentioned financial concerns due to the cost and inability to insure the hearing aids.
MEDICATIONS
Eliquis, Cardizem, Jardiance. The patient is also on thyroid medication, recently adjusted.
PHYSICAL EXAM
- Cardiovascular: Regular rhythm noted, not indicative of atrial fibrillation during examination.
- Vital Signs: Nursing notes reviewed, and vital signs reviewed.
PROBLEM LIST
Acute:
- Racing heart
- Mild dehydration
Chronic:
- History of atrial fibrillation
- Diabetes mellitus
- Hypothyroidism post-thyroidectomy
PLAN
- Check electrolytes and thyroid function.
- Administer fluids to address possible dehydration.
- Reassure the patient regarding the normal sinus rhythm.
- Continue monitoring and adjust treatment as needed based on test results and clinical presentation.
DIFFERENTIAL DIAGNOSIS
The Differential Diagnosis includes, in no particular order and is not limited to:
- Atrial fibrillation with rapid ventricular response
- Supraventricular tachycardia
- Panic attack
- Hyperthyroidism
- Dehydration
- Acute myocardial infarction
- Electrolyte imbalance
- Anemia
- Anxiety-related palpitations
- Sinus tachycardia
79-year-old female on Eliquis, recent ablation for A-fib on presents for tachycardia this morning feeling like a racing heart around 5 AM. She still had somewhat of the symptoms when she got here but much improved. She did take her blood
pressure at home and it was 200/100 but she was quite anxious. Patient says she gets whitecoat syndrome. But recently was had her losartan reduced from 50-25 with the addition of the diltiazem after her ablation. Patient says Dr. Marcum wants
her to take her blood pressures daily and report back with him in about 2 weeks whether she needs to be back on the 50 mg. Patient said she also had her thyroid medication reduced slightly. She is post thyroidectomy.
Patient is thinks she may be a little dehydrated but is not sure. She is not having any chest pain or shortness of breath or syncope. On arrival patient's heart rate was 120 however her EKG sinus tachycardia and her heart rate improved quickly.
She is a little bit hypertensive 180/70. She may need to go up on her losartan. I spoke with Dr. Christy who agreed that if she were persistently hypertensive we should bump up the losartan. Patient was told that she could have more A-fib episodes
after her ablation and the transient time. Since she is no longer in A-fib I do not feel the need for her to be admitted
*Pulse Oximetry
SaO2: 97
Oxygen Mode of Delivery: Room air
Patient hypoxic: no (98)
*Critical Care Note
Total Time (30-74mins, 75-104mins- exclusive of procedures): Not Applicable
ED Attending Note
-
Portions of this chart may have been created with voice recognition software.� Occasional wrong word or��sound alike� substitutions may have occurred due to the inherent limitations of voice recognition software.
Discharge Plan
Departure
Patient Disposition: Home (Routine Discharge)
Date of Disposition: 02/17/25
Time of Disposition: 12:17
Patient with high blood pressure during this ER visit?: Yes
Condition: Fair
Covid-19: Not Applicable
Discharge Problem:
Sinus tachycardia
Instructions: Tachycardia
Prescriptions:
No Action
fenofibrate nanocrystallized 145 MG tablet
145 mg PO DAILY
metformin 1,000 MG tablet
1,000 mg PO BID
Eliquis 5 mg tablet
5 mg PO BID Qty: 60 0RF
atorvastatin 20 mg Tablet
20 mg PO DAILY
Jardiance 10 mg Tablet
10 mg PO DAILY
pioglitazone 15 mg Tablet
15 mg PO DAILY
levothyroxine [Synthroid] 150 mcg Tablet
150 mcg PO DAILY
losartan 25 mg Tablet
25 mg PO DAILY
Theracran One Cranberry Supplement/Theralogix
1 cap PO DAILY
diltiazem HCl [Cardizem CD] 120 mg capsule,extended release 24hr
120 mg PO DAILY Qty: 0 0RF
Referrals:
Jermaine Martell MD [Family Provider, Family Practice]
Activity Restrictions/Additional Instructions:
You are not in atrial fibrillation while in the emergency department. Make sure you stay hydrated. Take your chronic medications. Avoid excess caffeine, alcohol, chocolate, or any stimulants. Monitor your blood pressures.
Follow-up with your tool supervisor as planned. Return for any concerns
Interventions
Interventions:
*Risk Screen - Suicide Last Done: 02/17/25 11:23
*General Assessment Last Done: 02/17/25 08:05
*Neglect/Abuse Screening Last Done: 02/17/25 08:05
*ED COVID-19 Vaccine History Last Done: 02/17/25 08:05
*ED Influenza Vaccine History Last Done: 02/17/25 08:05
[facility] Fall Risk Assessment Tool Last Done: 02/17/25 10:23
*Nursing Disposition Last Done: 02/17/25 12:37
ED- Pulmonary Assessment Last Done: 02/17/25 10:24
ED- Cardiac Assessment Last Done: 02/17/25 10:24
Discharge Date and Time
Discharge Date/Time: 02/17/25 12:48
Print Language: SAMOAN
[2025-02-17] MEDS: NSS 500 IV (10:57)
[2025-02-17 11:40] LABS: TSH 0.13 uIU/ml (0.47-4.68)
[2025-02-17 11:53] VITALS: BP 148/66
[2025-02-17 12:00] VITALS: BP 153/68
== END 2025-02-17 12:48 | disposition home or self-care (01) ==
LOC: EMR 08:00
PROVIDERS: Emergency Medicine; Physician Assistant; EMERGENCY PHYSICIAN Emergency Medicine; FAMILY PHYSICIAN Family Medicine
DX: R00.0 Tachycardia, unspecified (principal); E86.0 Dehydration; E11.9 Type 2 diabetes mellitus without complications; I48.91 Unspecified atrial fibrillation; I10 Essential (primary) hypertension; E78.00 Pure hypercholesterolemia, unspecified; E89.0 Postprocedural hypothyroidism; Z79.01 Long term (current) use of anticoagulants; Z79.84 Long term (current) use of oral hypoglycemic drugs; Z63.79 Other stressful life events affecting family and household; Z59.869 Financial insecurity, unspecified
CPT/HCPCS: 99284; 96360; 80053; 84439; 84443; 84484; 85025; 85610; 93005